=== PATIENT | female | born 1940 | race Two or more races ===

== ENCOUNTER → 2023-09-25 06:36 | Outpatient (REF) | payer MEDICARE, OTHER, SELFPAY ==
[2023-09-25 07:59] LABS: % Basophils 0.9 % (0-2); % Eosinophils 3.4 % (0-6); % Immature Granulocytes 0.1 % (0-0.5); % Lymphocytes 30.5 % (20.5-51.1); % Monocytes 7.3 % (1.7-9.3); % Neutrophils 57.8 % (42.2-75.2); Absolute Basophils 0.1 10^3/uL (0-0.2); Absolute Eosinophils 0.2 10^3/uL (0-0.7); Absolute Lymphocytes 2.1 10^3/uL (1.2-3.4); Absolute Monocytes 0.5 10^3/uL (0.1-0.6); Hematocrit 37.2 % (37.0-47.0); Hemoglobin 12.4 g/dL (12.0-16.0); Mean Corp Hgb Conc. 33.3 g/dL (33.0-37.0); Mean Corpuscular Hgb 27.9 pg (27.0-31.0); Mean Corpuscular Volume 83.6 fL (81.0-99.0); Mean Platelet Volume 10.1 fL (7.4-10.4); Nucleated Red Blood Cells % 0 %; Platelet Count 379 10^3/uL (130-400); Red Blood Cell Count 4.45 10^6/uL (4.20-5.40); Red Cell Dist. Width 13.4 % (11.5-14.5)
[2023-09-25 08:11] LABS: Urine Albumin Negative (Neg - Trace); Urine Bilirubin Negative (Negative); Urine Character Clear (Clear); Urine Color Yellow; Urine Glucose Negative (Negative); Urine Ketone Negative (Negative); Urine Leukocyte 2+ (Negative); Urine Nitrite Negative (Negative); Urine Occult Blood Negative (Negative); Urine Urobilinogen Negative (Neg - 1+)
[2023-09-25 08:23] LABS: ALT (SGPT) 18 U/L (0-35); AST (SGOT) 25 U/L (14-36); Albumin 4.4 g/dl (3.5-5.0); Alkaline Phosphatase 52 U/L (38-126); Blood Urea Nitrogen 16 mg/dl (7-17); Calcium 9.9 mg/dl (8.4-10.2); Carbon Dioxide 24 mmol/L (22-30); Chloride 104 mmol/L (98-107); Glucose 107 mg/dl (70-99); HDL Cholesterol 49 mg/dl; LDL Cholesterol, Calculated 50 mg/dl; Potassium 4.8 mmol/L (3.5-5.1); Sodium 136 mmol/L (135-145); Total Bilirubin 0.4 mg/dl (0.2-1.3); Total Cholesterol 132 mg/dl (50-199); Total Protein 6.9 g/dl (6.3-8.2); Triglyceride 167 mg/dl (10-149); Very Low Density Lipoprotein 33 mg/dl (0-30); eGFR > 60.00
[2023-09-25 08:30] LABS: Urine Squamous Cell 16-20 /LPF (Few)
[2023-09-25 08:32] LABS: Urine Bacteria Many (Negative)
[2023-09-25 08:36] LABS: Vitamin D, 25-OH*** 42.1 ng/mL (30-80)
[2023-09-25 08:49] LABS: TSH 4.57 uIU/ml (0.47-4.68)
[2023-09-25 09:08] LABS: Vitamin B12 695 pg/ml (239-931)
[2023-09-25 09:24] LABS: Glycohemoglobin (HgbA1c) 6.5 % (4.0-5.6)
== END ==
LOC: REG 06:36
PROVIDERS: ATTENDING PHYSICIAN Internal Medicine; FAMILY PHYSICIAN Internal Medicine Cardiovascular Disease
DX: E55.9 Vitamin D deficiency, unspecified (principal); E53.8 Deficiency of other specified B group vitamins; I10 Essential (primary) hypertension; R73.03 Prediabetes; E03.9 Hypothyroidism, unspecified; E78.2 Mixed hyperlipidemia
CPT/HCPCS: 36415; 80053; 80061; 81003; 81015; 82306; 82607; 83036; 84443; 85025

== ENCOUNTER → 2023-12-29 14:47 | Outpatient (REF) | payer MEDICARE, SELFPAY | LOC: RAD 14:47 | PROVIDERS: ATTENDING PHYSICIAN Internal Medicine | DX: I73.9 Peripheral vascular disease, unspecified (principal) | CPT/HCPCS: 93922; 93925 ==

== ENCOUNTER → 2024-03-15 12:54 | Outpatient (REF) | payer MEDICARE, OTHER, SELFPAY | LOC: RAD 12:54 | PROVIDERS: ATTENDING PHYSICIAN Internal Medicine Cardiovascular Disease; FAMILY PHYSICIAN Internal Medicine | DX: R22.1 Localized swelling, mass and lump, neck (principal) | CPT/HCPCS: 93880 ==

== ENCOUNTER → 2024-07-08 06:45 | Outpatient (REF) | payer MEDICARE, OTHER, SELFPAY ==
[2024-07-08 08:19] LABS: % Eosinophils 3.4 % (0-6); % Immature Granulocytes 0.3 % (0-0.5); % Lymphocytes 29.9 % (20.5-51.1); % Monocytes 7.4 % (1.7-9.3); Absolute Basophils 0.1 10^3/uL (0-0.2); Absolute Eosinophils 0.3 10^3/uL (0-0.7); Absolute Lymphocytes 2.2 10^3/uL (1.2-3.4); Absolute Monocytes 0.5 10^3/uL (0.1-0.6); Absolute Neutrophils 4.3 10^3/uL (1.4-6.5); Hematocrit 38.7 % (37.0-47.0); Hemoglobin 12.5 g/dL (12.0-16.0); Mean Corp Hgb Conc. 32.3 g/dL (33.0-37.0); Mean Corpuscular Hgb 27.2 pg (27.0-31.0); Mean Corpuscular Volume 84.3 fL (81.0-99.0); Mean Platelet Volume 10.7 fL (7.4-10.4); Nucleated Red Blood Cells % 0 %; Platelet Count 381 10^3/uL (130-400); Red Blood Cell Count 4.59 10^6/uL (4.20-5.40); Red Cell Dist. Width 13.6 % (11.5-14.5); White Blood Cell Count 7.3 10^3/uL (4.8-10.8)
[2024-07-08 08:26] LABS: Urine Albumin Negative (Neg - Trace); Urine Bilirubin Negative (Negative); Urine Character Clear (Clear); Urine Color Yellow; Urine Glucose Negative (Negative); Urine Ketone Negative (Negative); Urine Leukocyte Negative (Negative); Urine Nitrite Negative (Negative); Urine Occult Blood Negative (Negative); Urine Urobilinogen Negative (Neg - 1+)
[2024-07-08 08:49] LABS: ALT (SGPT) 16 U/L (0-35); AST (SGOT) 20 U/L (14-36); Alkaline Phosphatase 41 U/L (38-126); Blood Urea Nitrogen 12 mg/dl (7-17); Calcium 9.7 mg/dl (8.4-10.2); Carbon Dioxide 27 mmol/L (22-30); Chloride 108 mmol/L (98-107); Glucose 105 mg/dl (70-99); HDL Cholesterol 44 mg/dl; LDL Cholesterol, Calculated 44 mg/dl; Sodium 141 mmol/L (135-145); Total Bilirubin 0.3 mg/dl (0.2-1.3); Total Cholesterol 118 mg/dl (50-199); Total Protein 6.9 g/dl (6.3-8.2); Triglyceride 153 mg/dl (10-149); Very Low Density Lipoprotein 30 mg/dl (0-30); eGFR > 60.00
[2024-07-08 09:55] LABS: Glycohemoglobin (HgbA1c) 6.7 % (4.0-5.6)
[2024-07-08 10:02] LABS: TSH Reflex To Free T4 6.14 uIU/ml (0.47-4.68)
[2024-07-08 10:22] LABS: Vitamin B12 710 pg/ml (239-931)
[2024-07-08 10:30] LABS: Free T4 1.45 ng/dl (0.78-2.19)
== END ==
LOC: REG 06:45
PROVIDERS: ATTENDING PHYSICIAN Internal Medicine Cardiovascular Disease; FAMILY PHYSICIAN Internal Medicine
DX: Z71.2 Person consulting for explanation of examination or test findings (principal); R79.9 Abnormal finding of blood chemistry, unspecified; R79.89 Other specified abnormal findings of blood chemistry; Z13.220 Encounter for screening for lipoid disorders; E78.5 Hyperlipidemia, unspecified; E34.9 Endocrine disorder, unspecified; Z13.29 Encounter for screening for other suspected endocrine disorder; R73.09 Other abnormal glucose; I10 Essential (primary) hypertension; E55.9 Vitamin D deficiency, unspecified; R73.03 Prediabetes; E03.9 Hypothyroidism, unspecified; E53.8 Deficiency of other specified B group vitamins; E78.2 Mixed hyperlipidemia
CPT/HCPCS: 36415; 80053; 80061; 81003; 82306; 82607; 83036; 84439; 84443; 85025